=== PATIENT | male | born 2005 | race Hispanic/Latino ===

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

== ENCOUNTER 2023-05-23 15:34 | Emergency (ER) | payer OTHER, SELFPAY ==
[2023-05-23] MEDS ORDERED: Lidocaine 1% PF 5 ML VIAL ONE ×2 (16:53→17:34)
[2023-05-23] MEDS ORDERED: Bacitracin 1 PK ONE (18:12)
== END 2023-05-23 18:22 | disposition home or self-care (01) ==
LOC: ERS 15:34
DX: S61.213A Laceration without foreign body of left middle finger without damage to nail, initial encounter (principal); W26.0XXA Contact with knife, initial encounter
CPT/HCPCS: 11760; 12002